=== PATIENT | male | born 1965 | race African-American/Black ===

== ENCOUNTER 2020-12-15 04:47 | Day surgery (SDC) | payer OTHER ==
[2020-12-11 19:30] VITALS: BMI 24.3
[2020-12-15 08:51] LABS: EPI CELLS >36 /uL (0-25.1); HYALINE CASTS 37 /uL (0-3.1); PH,URINE 5.5 (5.0-8.0); URINE APPEARANCE TURBID; URINE BACTERIA 667 /uL (0-1359); URINE BILIRUBIN NEGATIVE (NEGATIVE); URINE COLOR YELLOW; URINE GLUCOSE (UA) NEGATIVE (NEGATIVE); URINE KETONE NEGATIVE (NEGATIVE); URINE LEUK ESTERASE 3+ (NEGATIVE); URINE NITRITE NEGATIVE (NEGATIVE); URINE PROTEIN 2+ (NEGATIVE); URINE UROBILINOGEN 0.2 mg/dL (0.2-1.0); URINE WBC 15603 /uL (0-25.8)
[2020-12-15] MEDS ORDERED: ceFAZolin 2 GRAM PREMIX BAG IVPB ONE (10:00)
[2020-12-15] MEDS ORDERED: BACITRACIN 15 GM TUBE TOPICAL OINTMENT ONE (10:32)
[2020-12-15] MEDS ORDERED: hydrALAZINE HCL 20 MG/ML VIAL ONE (11:31)
[2020-12-15] MEDS ORDERED: hydrALAZINE HCL 20 MG/ML VIAL IVPUSH ONE ×2 (11:34→12:06)
[2020-12-15] MEDS ORDERED: oxyCODONE HCL 5 MG TABLET PO PRN ×2 (12:05)
[2020-12-15] MEDS ORDERED: ONDANSETRON 4 MG/2 ML VIAL IVPUSH PRN (12:05)
[2020-12-15] MEDS ORDERED: LACTATED RINGERS SOLUTION 1,000 ML IV SCH (12:15)
[2020-12-15 12:52] LABS: URINE RBC 56.3 /uL (0-23.9)
[2020-12-15] MEDS ORDERED: oxyCODONE HCL 5 MG TABLET ONE (14:16)
[2020-12-15 15:44] VITALS: BP 124/87; PULSE 69; TEMP 98.2
== END 2020-12-15 15:30 | disposition home or self-care (01) ==
LOC: JASU-SURG 04:47
PROVIDERS: ATTEND Urology
PROC: 0V503ZZ Destruction of Prostate, Percutaneous Approach (ICD-10-PCS; principal; 2020-12-15 09:00)
DX: C61 Malignant neoplasm of prostate (principal)
CPT/HCPCS: 55873; C2618; 81003; 94760